=== PATIENT | female | born 1945 | race Caucasian/White ===

== ENCOUNTER 2017-12-03 23:13 | Emergency (ER) | payer OTHER ==
[~2017-12-03] VITALS: Ht 157.5 cm; Wt 61.2 kg
[2017-12-03 23:24] VITALS: BP 145/89
== END 2017-12-04 00:10 | disposition home or self-care (01) ==
LOC: ER 23:17
DX: M54.12 Radiculopathy, cervical region (principal); J45.909 Unspecified asthma, uncomplicated
CPT/HCPCS: A4606; Z7610